=== PATIENT | male | born 1940 | race Caucasian/White ===

== ENCOUNTER 2022-10-19 00:23 | Emergency (ER) | payer MEDICARE, MEDICAID ==
[~2022-10-19] VITALS: Ht 170.2 cm; Wt 91.8 kg
[2022-10-19 00:37] VITALS: BP 199/120
== END 2022-10-19 06:03 | disposition left against medical advice (07) ==
LOC: ER 00:24
DX: M54.59 Other low back pain (principal); Z53.21 Procedure and treatment not carried out due to patient leaving prior to being seen by health care provider